=== PATIENT | female | born 1990 | race Hispanic/Latino ===

== ENCOUNTER 2017-11-27 08:00 | Inpatient (IN) | payer MEDICAID, OTHER ==
[2017-11-24 14:35] VITALS: BP 116/70
[2017-11-24 15:04] LABS: BASOPHIL % 0.2 % (0.0-0.2); EOSINOPHIL # 0.2 10^3/uL (0.0-0.2); EOSINOPHIL % 1.7 % (0.0-5.0); HEMOGLOBIN 11.6 g/dL (12.0-15.0); LYMPHOCYTES # 2.2 10^3/uL (1.0-4.8); LYMPHOCYTES % 19.9 % (24.0-44.0); MEAN CELL HGB 28.3 pg (26-34); MEAN CELL HGB CONCENTRATION 32.5 g/dL (33-37); MEAN CORP VOLUME 87.1 fL (78-100); MEAN PLATELET VOLUME 10.4 fL (7.8-11.0); MONOCYTES # 0.7 10^3/uL (0.3-0.8); MONOCYTES % 6.2 % (5.0-12.0); NEUTROPHIL # 8.1 10^3/uL (1.8-7.7); PLATELET COUNT 175 10^3/uL (150-400); RED CELL DISTRIBUTION WIDTH 15.3 % (11.5-14.5); WHITE BLOOD CELL 11.3 10^3/uL (4.5-11.0)
[2017-11-24 15:11] LABS: BILIRUBIN,URINE NEGATIVE (NEGATIVE); UROBILINOGEN,URINE NORMAL (NEGATIVE)
[2017-11-24 15:26] LABS: APPEARANCE,URINE CLEAR (CLEAR); UA COLOR YELLOW (YELLOW); WBC,URINE 0-2 WBC/HPF (0-2)
[~2017-11-27] VITALS: Ht 157.5 cm; Wt 89.4 kg
[~2017-11-27 08:00] MED LIST: HYDR-925 PO; PREN1TAB59 PO
[2017-11-28] MEDS ORDERED: LACTATED RINGERS 1,000 ML ONE ×4 (04:33→16:42)
[2017-11-28] MEDS ORDERED: NS 100ML 100 ML IV ONE ×2 (04:33→07:25)
[2017-11-28] MEDS ORDERED: ROCEPHIN ONE ×2 (04:33→07:26)
[2017-11-28] MEDS: LACTATED RINGERS 1,000 ML IV PRN ×3 (06:11→16:50)
[2017-11-28] MEDS ORDERED: ROCEPHIN 1,000 MG in NS 100ML 100 ML IV ONE (06:30)
[2017-11-28] MEDS ORDERED: ZOFRAN ONE (07:26)
[2017-11-28] MEDS ORDERED: PITOCIN ONE (07:27)
[2017-11-28] MEDS ORDERED: TORADOL ONE ×3 (07:27→21:05)
[2017-11-28] MEDS ORDERED: DURAMORPH ONE (07:28)
[2017-11-28] MEDS ORDERED: VERSED ONE (07:28)
[2017-11-28] MEDS ORDERED: LR/PITOCIN 500 ML IV ONE (07:29)
[2017-11-28] MEDS ORDERED: EPHEDRINE SULFATE ONE (07:29)
[2017-11-28] MEDS ORDERED: DECADRON ONE (07:30)
[2017-11-28] MEDS ORDERED: SUBLIMAZE ONE (07:30)
[2017-11-28 09:30] VITALS: BP 130/83
[2017-11-28 09:45] VITALS: BP 130/80
[2017-11-28 10:00] VITALS: BP 130/80
[2017-11-28] MEDS ORDERED: BENADRYL IV PRN (10:00)
[2017-11-28] MEDS ORDERED: NUBAIN IV PRN (10:00)
[2017-11-28] MEDS ORDERED: NORCO 7.5MG PO PRN (10:00)
[2017-11-28] MEDS ORDERED: BENADRYL PO PRN ×2 (10:00)
[2017-11-28] MEDS ORDERED: ZOFRAN IV PRN ×2 (10:00)
[2017-11-28] MEDS ORDERED: MILK OF MAGNESIA PO PRN (10:00)
[2017-11-28] MEDS ORDERED: PHENERGAN IV PRN (10:00)
[2017-11-28] MEDS ORDERED: ZOFRAN ODT SL PRN (10:00)
[2017-11-28] MEDS ORDERED: NARCAN IV PRN (10:00)
[2017-11-28] MEDS ORDERED: NORCO 5MG PO PRN (10:00)
[2017-11-28] MEDS ORDERED: GAVISCON ES TABLET CHEW PO PRN (10:00)
[2017-11-28] MEDS ORDERED: REGLAN IV PRN (10:00)
[2017-11-28] MEDS ORDERED: DILAUDID IV PRN (10:00)
[2017-11-28] MEDS: LACTATED RINGERS 1,000 ML IV SCH ×2 (10:00→20:00)
[2017-11-28] MEDS ORDERED: NORCO 10MG PO PRN (10:00)
[2017-11-28] MEDS ORDERED: AMBIEN PO PRN (10:00)
[2017-11-28] MEDS ORDERED: DEMEROL IV PRN (10:00)
[2017-11-28] MEDS: TORADOL IV SCH ×5 (12:00→23:21)
--- NOTE | 2017-11-28 12:14 | PRM.OPH ---
Immediate Post Op Note Summary of Operation Date: Nov 28, 2017 Time: 12:07 Pre-Operative DX: IUP @ 39 1/7 WKS; H/O C/S X 2 Post-OP DX: SAME Anesth.Used: SPINAL Indications: REPEAT LOW TRANSVERSE SECTION VIA PFANNENSTIEL SKIN INCISION Physician's Summary: Healthy-appearing liveborn female in LOP position, no nuchal cord noted, clear-colored fluid/membranes throughout. Baby girl born at 0843 on Fri, scores of 8 and 9, weight 3314g (= 7# 4.9 oz). Good cry heard in delivery room. Normal-appearing placenta. Normal-appearing uterus, tubes bilaterally, ovaries bilaterally. WINDOW in lower uterine segment, so this was not a full-thickness uterine rupture. (Scalpel not needed to make entry into uterus.) No scar tissue in pelvis. Win-O self-retaining retractor used during this case, so the uterus was not exteriorized. Assistants: Listed Assisting Physicians TYLER FUCHS MD; DOMENICA MADERA CST Anesthesiologist/ARCHITECTURE INTERN ANTONELLA VASQUEZ ARCHITECTURE INTERN Specimen(s) Removed: List Specimen: NONE SENT Estimated Blood Loss: EBL/ESTIMATED BLOOD LOSS: (MIL: 500 Complications: Complications: NONE Assessment & Plan: Update Surgical HX/Problems: (1) Status post repeat low transverse section (2) 39 weeks gestation of Assessment & Plan: Routine postop care. RAHUL KEENE MD Nov 28, 2017 12:14
[2017-11-28] MEDS ORDERED: NUBAIN ONE (13:07)
[2017-11-28] MEDS: LACTATED RINGERS IV SCH ×2 (21:03→21:04)
[2017-11-28] MEDS: PITOCIN IV SCH ×2 (21:03→21:04)
[2017-11-29] MEDS ORDERED: LACTATED RINGERS 1,000 ML ONE (01:31)
[2017-11-29] MEDS: LACTATED RINGERS IV SCH ×2 (01:35→01:44)
[2017-11-29] MEDS: PITOCIN IV SCH ×2 (01:35→01:44)
[2017-11-29] MEDS: LACTATED RINGERS 1,000 ML IV PRN (01:35)
[2017-11-29] MEDS: LACTATED RINGERS 1,000 ML IV SCH (01:45)
[2017-11-29] MEDS ORDERED: TORADOL ONE ×2 (03:15→08:41)
[2017-11-29] MEDS: TORADOL IV SCH ×2 (03:21→09:31)
[2017-11-29 05:47] LABS: BASOPHIL % 0.2 % (0.0-0.2); EOSINOPHIL # 0.1 10^3/uL (0.0-0.2); EOSINOPHIL % 0.7 % (0.0-5.0); HEMOGLOBIN 10.3 g/dL (12.0-15.0); LYMPHOCYTES # 2.7 10^3/uL (1.0-4.8); LYMPHOCYTES % 21.2 % (24.0-44.0); MEAN CELL HGB 28.5 pg (26-34); MEAN CELL HGB CONCENTRATION 32.3 g/dL (33-37); MEAN CORP VOLUME 88.1 fL (78-100); MEAN PLATELET VOLUME 10.5 fL (7.8-11.0); MONOCYTES # 0.9 10^3/uL (0.3-0.8); MONOCYTES % 7.3 % (5.0-12.0); NEUTROPHIL # 8.9 10^3/uL (1.8-7.7); RED CELL DISTRIBUTION WIDTH 15.4 % (11.5-14.5); WHITE BLOOD CELL 12.7 10^3/uL (4.5-11.0)
[2017-11-29] MEDS ORDERED: NS 100ML 100 ML IV ONE (07:23)
[2017-11-29] MEDS ORDERED: ROCEPHIN ONE (07:23)
[2017-11-29] MEDS ORDERED: ROCEPHIN 1,000 MG in NS 100ML 100 ML IV SCH (08:00)
[2017-11-29] MEDS ORDERED: PRENATAL VITAMIN TABLET PO ONE (08:41)
[2017-11-29] MEDS: PRENATAL VITAMIN TABLET PO SCH (09:31)
[2017-11-29] MEDS ORDERED: LACTATED RINGERS IV PRN (10:30)
[2017-11-29] MEDS ORDERED: PITOCIN IV PRN (10:30)
--- NOTE | 2017-11-29 12:36 | PRM.PN ---
Progress Note Subjective Date: Nov 28, 2017 Time: 12:07 PRE-OP DX: (1) 39 weeks gestation of (2) Status post repeat low transverse section Anesth. Used: Spinal Procedure Performed: Repeat LTCS via Pfannenstiel incision Indications Prior C/S x 2 EBL/ESTIMATED BLOOD LOSS: (MIL: 500 Objective General: No Complaints Abdomen: Other (LE's with mild pedal edema & non tender) incision: Other (wound vac in place) Urine Output: Adequate Assessment & Plan: POST-OP DX: (1) Status post repeat low transverse section ICD Code: Z98.891 - History of uterine scar from previous surgery SNOMED: [id number], [id number], [id number], [id number] Status: Acute Assessment/Plan Routine post op care Anticipate d/c home on 11/30/17 TYLER FUCHS MD Nov 29, 2017 12:36
--- NOTE | 2017-11-29 13:33 | NUR ---
Post op pain round POD #1 after C/S with duramorph SAB. Pt is walking around in room. Family at bedside. pt has been ambulating. No residual numbness, no complications noted. Pain well controlled yesterday. Starting having pain this morning, has been taking po pain medications. Pt is pleased with anesthetic.
[2017-11-29] MEDS ORDERED: NORCO 7.5MG PO ONE ×2 (14:14→19:51)
[2017-11-29] MEDS: NORCO 7.5MG PO PRN ×2 (14:17→19:53)
[2017-11-29] MEDS ORDERED: MOTRIN ONE (19:50)
[2017-11-29] MEDS: MOTRIN PO PRN (19:52)
[2017-11-30] MEDS ORDERED: MOTRIN ONE ×2 (03:29→15:03)
[2017-11-30] MEDS ORDERED: NORCO 7.5MG PO ONE ×3 (03:29→15:03)
[2017-11-30] MEDS: MOTRIN PO PRN ×2 (03:31→15:11)
[2017-11-30] MEDS: NORCO 7.5MG PO PRN ×3 (03:32→15:10)
[2017-11-30] MEDS ORDERED: PRENATAL VITAMIN TABLET PO ONE (09:12)
[2017-11-30] MEDS: PRENATAL VITAMIN TABLET PO SCH (09:18)
[2017-11-30] MEDS ORDERED: HYDR-925 PO (11:20)
--- NOTE | 2017-11-30 11:28 | PRM.DC ---
OB Discharge Summary Discharge Summary Discharge Diagnosis: S/P (S/P Repeat C/S) Complications: No Complications Abnormal Lab Results Laboratory Tests Test 11/29/17 05:15 White Blood Count 12.7 10^3/uL Red Blood Count 3.62 10^6/uL Hemoglobin 10.3 g/dL Hematocrit 31.9 % Mean Corpuscular Volume 88.1 fL Mean Corpuscular Hemoglobin 28.5 pg Mean Corpuscular Hemoglobin Concent 32.3 g/dL Red Cell Distribution Width 15.4 % Platelet Count 148 10^3/uL Mean Platelet Volume 10.5 fL Neutrophils (%) (Auto) 70.0 % Lymphocytes (%) (Auto) 21.2 % Monocytes (%) (Auto) 7.3 % Neutrophils # (Auto) 8.9 10^3/uL Lymphocytes # (Auto) 2.7 10^3/uL Monocytes # (Auto) 0.9 10^3/uL Absolute Immature Granulocyte (auto 0.07 10^3 u/L Eosinophils % 0.7 % Basophils % 0.2 % Basophils # 0.0 10^3/uL Eosinophil Count 0.1 10^3/uL Percent Immature Gran (Cell Imm) 0.60 % Medications: Other (Rx [place] 7.5/325 #60 no refills--written on triplicate prescription pad and given to the patient prior to surgery) Discharge Disposition: Stable Discharge Instructions: Pelvic Rest x 6 Weeks, Clinic F/U 1-2 Weeks, Regular Diet, Regular Activity, Meds as Prescribed, Call MD for Problems Additional Comments Pt will have her Prevena wound vac removed in one week at [facility]. RAHUL KEENE MD Nov 30, 2017 11:28
[2017-11-30 14:40] VITALS: BP 115/63
== END 2017-11-30 17:43 | disposition home or self-care (01) | DRG 766 ==
LOC: LND 11-28 02:55 → EDPENDDISTM 11-30 12:00
PROVIDERS: ADMIT Hospitalist; ATTEND Hospitalist
PROC: 10D00Z1 Extraction of Products of Conception, Low, Open Approach (ICD-10-PCS; principal; 2017-11-28 07:52)
DX: O34.211 Maternal care for low transverse scar from previous cesarean delivery (principal); Z37.0 Single live birth; Z3A.39 39 weeks gestation of pregnancy
CPT/HCPCS: 36415; 59025; 76825; 81000; 85025; 86318; 86885; 86900; 86901; 86921; A4338; J0696; J1100; J1885; J2250; J2300; J2405; J2590; J3010; J3490; J7050; J7120; J2274

== ENCOUNTER → 2018-06-25 | Outpatient (CLI) | payer MEDICAID ==
[~2018-06-25] MED LIST changes: +HYDR-3469 PO; -HYDR-925 PO
== END | disposition home or self-care (01) ==
LOC: LAB 16:19
PROVIDERS: ATTEND Nurse Practitioner Women's Health
DX: Z32.01 Encounter for pregnancy test, result positive (principal)
CPT/HCPCS: 36415; 84702

== ENCOUNTER → 2018-07-01 | Outpatient (CLI) | payer MEDICAID, SELFPAY | END | disposition home or self-care (01) | LOC: LAB 14:56 | PROVIDERS: ATTEND Nurse Practitioner Women's Health | DX: Z32.01 Encounter for pregnancy test, result positive (principal) | CPT/HCPCS: 36415; 84702 ==

== ENCOUNTER → 2018-07-15 | Outpatient (CLI) | payer OTHER, SELFPAY | END | disposition home or self-care (01) | LOC: LAB 11:49 | PROVIDERS: ATTEND Nurse Practitioner Women's Health | DX: O03.9 Complete or unspecified spontaneous abortion without complication (principal); Z3A.00 Weeks of gestation of pregnancy not specified | CPT/HCPCS: 36415; 84702 ==

== ENCOUNTER → 2020-07-24 | Outpatient (CLI) | payer OTHER ==
--- NOTE | 2020-07-24 15:43 | DIREP ---
PROCEDURE:US PELVIS COMPLETE COMPARISON:None. INDICATIONS:WOOD TILE INSTALLER EXAM, IUD PLACEMENT TECHNIQUE:Pelvic ultrasound using transabdominal technique. Endovaginal images were also obtained for better assessment of the uterus and adnexa. FINDINGS: UTERUS:Size is 10.1 x 5.9 x 6.7 cm. The myometrium is homogeneous. ENDOMETRIUM:Thickness is 7 mm. IUD has descended into the isthmus/endocervical canal. RIGHT OVARY:Normal appearance. 2.7 x 1.3 x 2.6 cm. 4.7 cc LEFT OVARY:Normal appearance. 2.9 x 1.7 x 2.5 cm. 6.5 cc CUL-DE-SAC:Normal. OTHER:Negative. CONCLUSION: 1. IUD descended into the isthmus/endocervical canal. Dictated by: Shagufta Pope MD on 07/24/2020 at 03:41 PM
== END | disposition home or self-care (01) ==
LOC: RAD 14:32
PROVIDERS: ATTEND Nurse Practitioner Women's Health
DX: Z01.419 Encounter for gynecological examination (general) (routine) without abnormal findings (principal)
CPT/HCPCS: 76830; 76856

== ENCOUNTER 2020-11-24 19:25 | Emergency (ER) | payer OTHER ==
[~2020-11-24] VITALS: Ht 167.6 cm; Wt 78.5 kg
[2020-11-24 20:04] VITALS: BP 124/86
[2020-11-24] MEDS ORDERED: REGLAN IV STA (20:19)
[2020-11-24] MEDS ORDERED: NS 1000ML 1,000 ML IV ONE (20:30)
[2020-11-24 20:44] LABS: BASOPHIL % 0.2 % (0.0-0.2); EOSINOPHIL # 0.1 10^3/uL (0.0-0.2); EOSINOPHIL % 1.1 % (0.0-5.0); LYMPHOCYTES # 2.55 10^3/uL1 (1.0-4.8); LYMPHOCYTES % 27.6 % (24.0-44.0); MEAN CORP HGB 28.3 pg (26-34); MONOCYTES # 0.6 10^3/uL (0.3-0.8); MONOCYTES % 6.6 % (5.0-12.0); NEUTROPHILS % 64.3 % (41.0-85.0); PLATELET COUNT 242 10^3/uL (150-400); RED CELL DISTRIBUTION WIDTH 13.9 % (11.5-14.5)
[2020-11-24] MEDS ORDERED: NS 1000ML 1,000 ML ONE (20:46)
--- NOTE | 2020-11-24 20:50 | NUR ---
SAI CALLED [facility] FOR US ER 8.
--- NOTE | 2020-11-24 20:50 | ER.PDOC ---
General Chief Complaint: Vaginal Bleed Stated Complaint: N/V Time seen by MD: 20:15 Source: patient, family (spouse) History of Present Illness Initial Comments Vaginal bleeding for 1 week intermittently. Patient had IUD placed in September 2020. She had a period approximately 1 month ago. She feels left pelvic pressure. No vaginal D/C. No fever. No dizziness or syncope. She took a home test this morning that was positive. Timing/Duration: intermittent, other (started 1 week ago) Severity/Quality: mild, fullness Location of Pain: pelvic pain Vaginal Bleed: abnormal bleeding, passing clots LMP (females 10-50): IUD placed September 2020 : 5 Para: 3 Test: home Care: none Sexual [place] History: single partner Contraceptive: IUD Associated Symptoms: denies symptoms Allergies: Coded Allergies: No Known Allergies (Unverified , 11/24/17) Home Meds Active Scripts Hydrocodone Bit/Acetaminophen (NORCO 7.5-325 TABLET) 7.5-3,251 Ea Tablet, 1 EACH PO Q4H PRN for Pain 1-3 when tolerating PO for 30 Days, #60 TABLET 0 Refills Prov:RAHUL KEENE MD 11/30/17 Reported Medications Vits W-Ca,Fe,Fa(<1MG) ( VITAMINS) 1 Each Tablet, 1 TAB PO RAMYA Y, #90 TAB 3 Refills 11/07/15 Past Medical History Medical History: no pertinent history Surgical History: no surgical history LMP (females 10-50): 1 month Family History Significant Family History: no pertinent family hx Social History Smoking: non-smoker Alcohol Use: none Drug Use: none Review of Systems Constitutional: denies fever EENTM: denies throat pain Respiratory: denies cough, denies shortness of breath Cardiovascular: denies chest pain Gastrointestinal: denies abdominal pain, denies diarrhea; nausea; denies vomiting Genitourinary: denies discharge, denies dysuria; frequency, hematuria Musculoskeletal: denies back pain, denies neck pain Skin: denies rash Psychiatric/Neurological: denies numbness, denies paresthesia, denies weakness Hematologic/Lymphatic: denies easy bleeding All Other Systems: Reviewed and Negative Physical Exam General Appearance: No Apparent Distress, WD/WN EENT: eyes nml inspection, nml ENT inspection, pharynx nml Neck: nml inspection, non-tender Cardiovascular/Respiratory: Regular Rate, Rhythm, No M/R/G, Normal Peripheral Pulses, Normal Breath Sounds, No Respiratory Distress Abdomen: Normal Bowel Sounds, Non Tender, Soft, No Organomegaly, No Pulsatile Mass Back: nml inspection Pelvic: External Exam Normal, Speculum Exam Normal, Bimanual Exam Normal, No Cerv. Motion Tender, Other (IUD strings visible) Extremities: Normal Range of Motion, Non-Tender, Normal Inspection, No Pedal Edema, Normal Capillary Refill Neurologic/Psychiatric: senior research associate II-XII NML as Tested, No Motor/Sensory Deficits, Alert, Normal Mood/Affect, Oriented x 3 Skin: Normal Color, Warm/Dry Results/Orders Results/Orders Orders - AMALIA ELLINGTON MD Cbc With Auto Diff (11/24/20 20:19) Urinalysis (11/24/20 20:19) Hcg, Quantitative (11/24/20 20:19) Saline Lock (11/24/20 20:19) Us Preg Before 14 Wks (11/24/20 20:19) Abo/Rh Type (11/24/20 20:19) Metoclopramide Hcl (Reglan) (11/24/20 20:19) 0.9 % Sodium Chloride (Ns 1000ml) (11/24/20 20:30) 0.9 % Sodium Chloride (Ns 1000ml) (11/24/20 20:46) Us Tv-Ob (11/24/20 ) Urine Culture (11/24/20 20:30) Vital Signs Date Time Temp Pulse Resp B/P (MAP) Pulse Ox O2 Delivery O2 Flow Rate FiO2 11/24/20 20:04 98.5 76 16 11/24/20 20:04 98.5 76 16 124/86 (99) 99 Room Air 11/24/20 20:04 98.5 76 16 99 Administered Medications Medications (Trade) Dose Ordered Sig/Rojelio Route PRN Reason Start Time Stop Time Status Last Admin Dose Admin Metoclopramide HCl (Reglan) 10 mg STAT STAT IV 11/24/20 20:19 11/24/20 20:24 DC 11/24/20 20:56 10 MG Sodium Chloride 1,000 ml @ 0 mls/hr Q0M ONCE IV 11/24/20 20:30 11/24/20 20:31 DC 11/24/20 20:57 1,200 MLS/HR Laboratory Tests Test 11/24/20 20:30 11/24/20 20:36 Urine Collection Type CCMS Urine Color YELLOW (YELLOW) Urine Appearance SLIGHTLY CLOUDY (CLEAR) Urine Bilirubin NEGATIVE MG/DL (NEGATIVE) Urine Ketones NEGATIVE (NEGATIVE) Urine Specific [place] 1.020 (1.005-1.035) Urine pH 6.0 (5.0-6.0) Urine Protein NEGATIVE (NEGATIVE) Urine Urobilinogen 0.2 (NEGATIVE) Urine Nitrate NEGATIVE (NEGATIVE) Urine Leukocyte Esterase NEGATIVE (NEGATIVE) Urine Blood SMALL (NEGATIVE) Urine RBC 2-5 RBC/HPF (NONE SEEN) Urine WBC 2-5 WBC/HPF (0-2) Urine Squamous Epithelial Cells FEW #/HPF (FEW) Urine Bacteria FEW (NONE SEEN) H Urine Glucose NORMAL (NEGATIVE) White Blood Count 9.3 10^3/uL (4.5-11.0) Red Blood Count 4.35 10^6/uL (4.00-5.20) Hemoglobin 12.3 g/dL (12.0-15.0) Hematocrit 37.7 % (36.0-46.0) Mean Corpuscular Volume 86.7 fL (78-100) Mean Corpuscular Hemoglobin 28.3 pg (26-34) Mean Corpuscular Hemoglobin Concent 32.6 g/dL (33-36.5) L Red Cell Distribution Width 13.9 % (11.5-14.5) Platelet Count 242 10^3/uL (150-400) Mean Platelet Volume 9.4 fL (7.8-11.0) Neutrophils (%) (Auto) 64.3 % (41.0-85.0) Lymphocytes (%) (Auto) 27.6 % (24.0-44.0) Monocytes (%) (Auto) 6.6 % (5.0-12.0) Neutrophils # (Auto) 6.0 10^3/uL (1.8-7.7) Lymphocytes # (Auto) 2.55 10^3/uL1 (1.0-4.8) Monocytes # (Auto) 0.6 10^3/uL (0.3-0.8) Absolute Immature Granulocyte (auto 0.02 10^3 u/L (0-2) Absolute Eosinophils (auto) 0.1 10^3/uL (0.0-0.2) Immature Granulocytes % 0.20 % (0.00-0.50) Eosinophils % 1.1 % (0.0-5.0) Basophils % 0.2 % (0.0-0.2) Basophils # 0.0 10^3/uL (0.0-0.1) Human Chorionic Gonadotropin, Quant 15021 mIU/mL Blood Bank Test 11/24/20 20:36 Blood Type O POSITIVE Progress Progress Patient had an IV established and was given normal saline 1000 mL fluid bolus and Reglan 10 mg IV with resolution of her nausea. Patient CBC was normal. Patient's UA was negative. Patient's quantitative hCG was 40,635. Patient is O+. Due to the patient's vaginal bleeding with positive test she underwent ultrasound of her pelvis with concern for possible ectopic . Ultrasound demonstrates single, Intrauterine of approximately 6 weeks and 5 days. No cardiac activity was noted at this time. Patient's IUD is in her erythematous and endocervical canal. Patient had no adnexal masses or free fluid in the pelvis. Impression patient has intrauterine with displaced IUD. Patient does not appear to have ectopic , ruptured tubo-ovarian abscess, ovarian torsion, urinary tract infection, appendicitis, diverticulitis, sepsis, or other serious etiology of her symptoms. Patient will be discharged home to follow-up with her [facility] on Friday. ER DEPART Departure Time of Disposition: 23:11 Disposition: 01 HOME, SELF-CARE Impression: Primary Impression: Threatened Condition: Stable Referrals: KALIA BRADFORD STORE SALES MANAGER (PCP) PRIMARY CARE PROVIDER Additional Instructions: Thank you for your visit today and trusting us with your health care needs. Return immediately if worse pain, worse bleeding, persistent vomiting, fever. Do not put anything in the vagina until bleeding stops. Follow-up with [facility] November 27, 2020. Duration or Time Spent with Pa: 20 minutes AMALIA ELLINGTON MD Nov 24, 2020 20:50
[2020-11-24 20:52] LABS: APPEARANCE,URINE SLIGHTLY CLOUDY (CLEAR); BILIRUBIN,URINE NEGATIVE (NEGATIVE); UA COLOR YELLOW (YELLOW)
[2020-11-24 20:53] LABS: UROBILINOGEN,URINE 0.2 (NEGATIVE)
--- NOTE | 2020-11-24 20:57 | NUR ---
PELVIC EXAM EDP AT BEDSIDE FOR PELVIC EXAM. NORMAL EXAM, PATIENT TOLERATED WELL.
--- NOTE | 2020-11-24 21:22 | NUR ---
US [facility], US AT BEDSIDE TO TRANSPORT PATIENT TO DEPARTMENT FOR ORDERED EXAM.
--- NOTE | 2020-11-24 22:58 | DIREP ---
PROCEDURE:US OB 1ST TRI - TV COMPARISON:[facility], , US PELVIS COMPLETE, 07/24/2020, 02:51 PM. [facility], , US OB 1ST TRI TRANS ABD, 05/26/2017, 03:50 PM. INDICATIONS:, vaginal bleeding TECHNIQUE:Transabdominal and endovaginal pelvic ultrasound images were obtained. Endovaginal images were obtained to optimally evaluate the and maternal adnexal structures. FINDINGS: LMP: November 06, 2020, corresponding to an EGA of 2 W 4 D IVETTE (LMP): Aug 13, 2021 INTRAUTERINE GESTATIONAL SAC:Present. YOLK SAC: Present. POLE: Present. CRL = 0.8 cm, corresponding to an EGA of 6 W 5 D. US IVETTE:Jul 15, 2021 CARDIAC ACTIVITY:No cardiac activity identified at this time. Expect cardiac activity by 1 cm crown-rump length. UTERUS:IUD remains descended, within the isthmus/endocervical canal. OVARIES:Normal. Right ovary not visualized. Left ovary not visualized. There are no adnexal masses. CUL-DE-SAC:Normal. OTHER:Survey of the placental anatomic structure and amniotic fluid could not be performed because of gestational age (<14 weeks). CONCLUSION: Single intrauterine . Dictated by: Shagufta Pope MD on 11/24/2020 at 10:52 PM
--- NOTE | 2020-11-24 23:25 | NUR ---
DISCHARGE PT GIVEN DISCHARGE INSTRUCTIONS, DISCUSSED ER VISIT, LABS, US, UA AND RESULTS. PT VERBALIZED UNDERSTANDING OF VISIT. DISCUSSED NEED TO FOLLOW UP WITH OB-APPLIANCES SAMPLE MAKER, PT/SPOUSE VERBALIZED UNDERSTANDING. DC VITALS OBTAINED, WNL AND DOCUMENTED. SAFE MEDICATIONS DURING LIST GIVEN TO PT. PT AMBULATED W/OUT DIFFICULTY TO POV WITH BELONGINGS AND SPOUSE.
[2020-11-24 23:30] VITALS: BP 112/58
== END 2020-11-24 23:25 | disposition home or self-care (01) ==
LOC: ER 19:25
DX: O20.0 Threatened abortion (principal)
CPT/HCPCS: 36415; 76801; 76817; 81000; 84702; 85025; 86900; 87086; 96361; 96374; 99284; J7030

== ENCOUNTER → 2022-02-25 | Outpatient (CLI) | payer OTHER ==
[2022-02-25 17:03] LABS: MEAN CORP HGB 28.1 pg (26-34); RED CELL DISTRIBUTION WIDTH 13.2 % (11.5-14.5)
[2022-02-25 17:40] LABS: CARBON DIOXIDE 21.6 mmol/L (20.0-32)
== END | disposition home or self-care (01) ==
LOC: LAB 16:28
PROVIDERS: ATTEND Nurse Practitioner Women's Health
DX: Z13.89 Encounter for screening for other disorder (principal); Z13.1 Encounter for screening for diabetes mellitus; E55.9 Vitamin D deficiency, unspecified
CPT/HCPCS: 36415; 80053; 80061; 82306; 83036; 84439; 84443; 85027; 86803

== ENCOUNTER → 2022-07-04 | Outpatient (CLI) | payer OTHER | END | disposition home or self-care (01) | LOC: LAB 16:22 | PROVIDERS: ATTEND Nurse Practitioner Women's Health | DX: E55.9 Vitamin D deficiency, unspecified (principal) | CPT/HCPCS: 36415; 82306 ==